=== PATIENT | male | born 1980 | race Caucasian/White ===

== ENCOUNTER → 2016-11-26 | Outpatient (CLI) | payer OTHER ==
[~2016-11-26] MED LIST: FLEXERIL10 MG PO; KEFLEX500 M1 PO; LODINE200 MG PO; NORCO 325 MG-51 TAB PO; VICODIN 5/500 T1 TAB PO; VOLTAREN75 MG PO
[2016-11-26 18:24] LABS: URINE BILIRUBIN - DIPSTICK NEGATIVE (NEG); URINE BLOOD NEGATIVE (NEG)
[2016-11-26 19:15] LABS: AMPHETAMINES/METAMPHETAMINES NEGATIVE ng/mL (<1000)
== END ==
LOC: LAB 17:35
PROVIDERS: Physician Assistant
DX: Z79.899 Other long term (current) drug therapy (principal)